=== PATIENT | female | born 1985 | race African-American/Black ===

== ENCOUNTER 2023-08-05 12:48 | Emergency (ER) | payer OTHER ==
[~2023-08-05] VITALS: Ht 170.2 cm; Wt 70.0 kg
[2023-08-05] MEDS: SODIUM CHLORIDE 0.9% 1,000 ML IV ONE (13:15)
[2023-08-05] MEDS: MORPHINE SULFATE 4 MG/ML INJ (FOR IV/IM USE) IV STA (14:24)
[2023-08-05] MEDS: ONDANSETRON HCL 4MG/2ML INJ IV STA (14:25)
[2023-08-05] MEDS: MORPHINE SULFATE 4 MG/ML INJ (FOR IV/IM USE) IV ONE (14:30)
[2023-08-05] MEDS: ETOMIDATE 2MG/ML 10ML VIAL IV ONE (14:30)
[2023-08-05 15:02] VITALS: O2SAT 97
[2023-08-05] MEDS ORDERED: HYDR-4001 MT (17:41)
[2023-08-05] MEDS ORDERED: IBUP-2028 MT (17:41)
[2023-08-05 18:15] VITALS: BP 108/60; PULSE 70; RESP 15; TEMP 97.6
== END 2023-08-05 18:38 | disposition home or self-care (01) ==
LOC: ER 13:37
DX: S82.841A Displaced bimalleolar fracture of right lower leg, initial encounter for closed fracture (principal); J45.909 Unspecified asthma, uncomplicated; W18.39XA Other fall on same level, initial encounter; Y93.89 Activity, other specified; Y92.89 Other specified places as the place of occurrence of the external cause; Y99.8 Other external cause status
CPT/HCPCS: 73590; 73610; 73630; 27810; 96361; 96374; 99152; 99285; J3490; J2405; J2270; J7030; Z7610 ×2